=== PATIENT | female | born 1975 | race Caucasian/White ===

== ENCOUNTER → 2019-10-06 | Outpatient (CLI) | payer OTHER ==
[2019-10-06 08:25] LABS: ALANINE AMINOTRANSFERASE 21 U/L (12-78); ALBUMIN 3.4 g/dL (3.4-5.0); ANION GAP 4 mmol/L (5-15); CHLORIDE 106 mmol/L (98-107)
[2019-10-06 08:34] LABS: ALKALINE PHOSPHATASE 99 U/L (45-117); BILIRUBIN,TOTAL 0.8 mg/dL (0.2-1.0); CHOL/HDL RATIO 3.6; CHOLESTEROL, TOTAL 213 mg/dL (140-239); CREATININE 0.63 mg/dL (0.55-1.02); FREE T4 (FREE THYROXINE) 0.97 ng/dL (0.76-1.46); HDL CHOL % 28 % (28-40); HDL CHOLESTEROL (DIRECT) 60 mg/dL (40-60); LDL CHOLESTEROL,CALCULATED 129 mg/dL (54-169); LDL/HDL RATIO 2.2 (0.5-3.0); TOTAL PROTEIN 7.7 g/dL (6.4-8.2); TRIGLYCERIDES 119 mg/dL (50-200); VLDL CHOLESTEROL 24 mg/dL (0-25)
[2019-10-06 09:13] LABS: BASOPHILS # (AUTO) 0.05 x10^3/uL (0-0.1); BASOPHILS % (AUTO) 0 % (0-1); EOSINOPHILS % (AUTO) 3 % (1-7); LYMPHOCYTES # (AUTO) 2.43 x10^3/uL (1-3.4); LYMPHOCYTES % (AUTO) 21 % (22-44); MD NO; MEAN CORPUSCULAR HEMOGLOBIN 28.9 pg (27.0-34.8); MEAN CORPUSCULAR HGB CONC 33.4 g/dL (32.4-35.8); MEAN CORPUSCULAR VOLUME 86.4 fL (80-100); MEAN PLATELET VOLUME 9.6 fL (7.4-10.4); MONOCYTES # (AUTO) 0.18 x10^3/uL (0.2-0.8); MONOCYTES % (AUTO) 2 % (2-9); NEUTROPHILS # (AUTO) 8.48 x10^3/uL (1.8-6.8); NEUTROPHILS % (AUTO) 74 % (42-75); PLATELET COUNT 227 x10^3/uL (130-400); RED BLOOD COUNT 5.62 x10^6/uL (3.82-5.3); RED CELL DISTRIBUTION WIDTH 14.1 % (9.6-15.2)
== END | disposition home or self-care (01) ==
LOC: LAB 07:38
PROVIDERS: ATTEND Nurse Practitioner Family
DX: Z00.01 Encounter for general adult medical examination with abnormal findings (principal); Z13.220 Encounter for screening for lipoid disorders; E66.3 Overweight; F41.9 Anxiety disorder, unspecified; G47.00 Insomnia, unspecified; J45.909 Unspecified asthma, uncomplicated; Z86.19 Personal history of other infectious and parasitic diseases
CPT/HCPCS: 36415; 80053; 80061; 80074; 82306; 83036; 84439; 84443; 84481; 85025; 87521

== ENCOUNTER → 2020-01-03 | Outpatient (CLI) | payer OTHER ==
[~2020-01-03] MED LIST: OMNIPAQUE 350 MG/ML, 150 ML BOTTLE ONE
== END | disposition home or self-care (01) ==
LOC: EDSEX → CFH 14:06
PROVIDERS: ATTEND Nurse Practitioner Family
DX: N20.0 Calculus of kidney (principal); N28.89 Other specified disorders of kidney and ureter
CPT/HCPCS: 74178; Q9967

== ENCOUNTER → 2020-02-14 | Outpatient (CLI) | payer OTHER ==
[~2020-02-14] MED LIST changes: +ALBU8.5H8 INH; +ALPR0.5T3 PO; +CYCL5TAB PO; +DOCU-131 PO; +FEXO180T15 PO; +IBUP-1623 PO; +KETO10TA PO; +MECL-101 PO; -OMNIPAQUE 350 MG/ML, 150 ML BOTTLE ONE; +OXYC-302 PO; +PROP10TA16 PO
[2020-02-14 15:56] LABS: MICROSCOPIC INDICATED
== END | disposition home or self-care (01) ==
LOC: STAR 14:32
PROVIDERS: ATTEND Urology
DX: Z01.818 Encounter for other preprocedural examination (principal); Z20.828 Contact with and (suspected) exposure to other viral communicable diseases; N20.0 Calculus of kidney
CPT/HCPCS: 36415; 81001; 87086; 87635

== ENCOUNTER 2020-02-18 08:02 | Observation (INO) | payer OTHER ==
[~2020-02-18] VITALS: Ht 157.5 cm; Wt 125.2 kg
[~2020-02-18 08:02] MED LIST changes: -DOCU-131 PO; -OXYC-302 PO
[2020-02-18] MEDS ORDERED: VANCOMYCIN PMX 1GM/200ML 200 ML IV ONE (08:30)
[2020-02-18 08:42] VITALS: BP 128/84
[2020-02-18 08:43] VITALS: BP 128/84
[2020-02-18] MEDS ORDERED: CHLORHEXIDINE 15 ML UDC ONE (08:51)
[2020-02-18] MEDS: SODIUM CHLORIDE 0.9% 1,000 ML IV SCH ×2 (09:04→18:44)
[2020-02-18] MEDS ORDERED: LIDOCAINE 1%, 20ML ONE ×2 (10:19→10:56)
[2020-02-18] MEDS ORDERED: FENTANYL PF 100 MCG/2ML ONE ×2 (10:20→16:18)
[2020-02-18] MEDS ORDERED: MIDAZOLAM 1 MG/ML, 5ML ONE (10:20)
[2020-02-18] MEDS ORDERED: FLUMAZENIL 0.1 MG/1 ML, 5ML ONE (10:20)
[2020-02-18] MEDS ORDERED: NALOXONE 1 MG/ML, 2ML ONE (10:20)
[2020-02-18] MEDS ORDERED: ACETAMINOPHEN 500 MG TABLET PO ONE (12:00)
[2020-02-18] MEDS ORDERED: OXYcodone IR 5MG TABLET PO ONE (12:00)
[2020-02-18] MEDS ORDERED: LACTATED RINGERS 1,000 ML IV SCH (13:00)
[2020-02-18] MEDS ORDERED: CHLORHEXIDINE 15 ML UDC MM ONE (13:00)
[2020-02-18] MEDS ORDERED: FENTANYL PF 250 MCG/5ML ONE (14:28)
[2020-02-18] MEDS ORDERED: MIDAZOLAM 1 MG/ML, 2ML ONE (14:28)
[2020-02-18] MEDS ORDERED: OMNIPAQUE 350 MG/ML, 50 ML BOTTLE ONE (14:30)
[2020-02-18] MEDS ORDERED: CEFTRIAXONE 1,000 MG ONE ×2 (14:50→14:56)
[2020-02-18] MEDS ORDERED: ROCURONIUM 10MG/ML,5ML ONE (15:44)
[2020-02-18] MEDS ORDERED: NEOSTIGMINE 1 MG/ML, 10ML ONE (15:44)
[2020-02-18] MEDS ORDERED: ONDANSETRON 2MG/ML, 2ML ONE ×2 (15:44→16:17)
[2020-02-18] MEDS ORDERED: SUGAMMADEX 200 MG/2 ML IVPush ONE (15:44)
[2020-02-18] MEDS ORDERED: PROPOFOL 10 MG/ML, 20ML ONE (15:44)
[2020-02-18] MEDS ORDERED: CEFAZOLIN 1,000 MG ONE (15:44)
[2020-02-18] MEDS ORDERED: SUCCINYLCHOLINE 20 MG/ML, 10ML ONE (15:44)
[2020-02-18] MEDS ORDERED: GLYCOPYRROLATE 0.2MG/1ML, 5ML ONE (15:44)
[2020-02-18] MEDS ORDERED: DEXAMETHASONE 4 MG/ML, 1ML ONE (15:44)
[2020-02-18] MEDS ORDERED: HYDROmorphone 1 MG/ML, 1ML INJ IVPush PRN (16:00)
[2020-02-18] MEDS ORDERED: ONDANSETRON 2MG/ML, 2ML IVPush PRN (16:00)
[2020-02-18] MEDS ORDERED: OXYcodone 5 MG/5 ML ORAL.SOL UDC PO PRN (16:00)
[2020-02-18] MEDS ORDERED: PROMETHAZINE 25 MG/ML, 1ML IVPush PRN (16:00)
[2020-02-18] MEDS ORDERED: LORazepam 2 MG/ML, 1ML IVPush PRN (16:00)
[2020-02-18] MEDS ORDERED: PROMETHAZINE 25 MG SUPP PR PRN (16:00)
[2020-02-18] MEDS: FENTANYL PF 100 MCG/2ML IV PRN ×2 (16:20→16:50)
[2020-02-18] MEDS ORDERED: ONDANSETRON 2MG/ML, 2ML IV PRN (16:30)
[2020-02-18] MEDS ORDERED: OXYcodone 5 MG/5 ML ORAL.SOL UDC ONE (16:56)
[2020-02-18 17:40] VITALS: BP 123/81
[2020-02-18] MEDS: HYDROmorphone 2 MG/ML, 1ML IV PRN ×3 (17:59→23:06)
[2020-02-18] MEDS ORDERED: CYCLOBENZAPRINE 10 MG TABLET PO PRN (18:00)
[2020-02-18] MEDS ORDERED: ALBUTEROL HFA 90 MCG/SPRAY INH PRN (18:00)
[2020-02-18] MEDS ORDERED: MECLIZINE 25 MG TABLET PO PRN (18:00)
[2020-02-18 19:25] VITALS: BP 121/79
[2020-02-18] MEDS: OXYcodone/APAP 5/325MG TABLET PO PRN ×2 (20:03→23:51)
[2020-02-18 23:35] VITALS: BP 107/72
[2020-02-19 03:00] VITALS: BP 98/65
[2020-02-19] MEDS: OXYcodone/APAP 5/325MG TABLET PO PRN ×4 (03:54→15:57)
[2020-02-19 08:01] VITALS: BP 119/70
[2020-02-19] MEDS ORDERED: LORATADINE 10 MG TABLET PO SCH (09:00)
[2020-02-19] MEDS ORDERED: PROPRANOLOL 10 MG TABLET PO SCH (09:00)
[2020-02-19] MEDS ORDERED: KETOROLAC 30 MG/1 ML ONE (11:21)
[2020-02-19] MEDS ORDERED: KETOROLAC 30 MG/1 ML IVPush ONE (11:30)
[2020-02-19] MEDS ORDERED: OXYC-302 PO (11:57)
[2020-02-19] MEDS ORDERED: DOCU-131 PO (11:58)
[2020-02-19] MEDS ORDERED: KETOROLAC 30 MG/1 ML IM PRN (12:00)
[2020-02-19 13:00] VITALS: BP 105/78
[2020-02-19] MEDS ORDERED: ONDANSETRON ODT 4 MG ONE (15:43)
[2020-02-19] MEDS ORDERED: DIPHENHYDRAMINE 25 MG CAPSULE ONE (15:43)
[2020-02-19] MEDS ORDERED: ONDANSETRON ODT 4 MG PO ONE (16:00)
[2020-02-19] MEDS ORDERED: DIPHENHYDRAMINE 25 MG CAPSULE PO PRN (16:00)
== END 2020-02-19 16:40 | disposition home or self-care (01) ==
LOC: RAD 08:02 → ORIP 16:07 → 4NE 17:43 → DCLOUNGE 02-19 16:31
PROVIDERS: ADMIT Urology; ATTEND Urology
DX: N20.0 Calculus of kidney (principal); I10 Essential (primary) hypertension; Z88.0 Allergy status to penicillin; Z91.040 Latex allergy status; Z87.442 Personal history of urinary calculi
CPT/HCPCS: 50080; 50433; 74425; 82360; 88300; 96374; 96375; 96376; 99156; 99157; C1727; C1729; C1751; C1758; C1769; C2625; C2627; G0378; J0690; J0696; J1100; J1170; J1885; J2250; J2405; J2704; J3010; J3370; J3490; J7030; J7120; Q0163; Q9967; J2710; J0330; J2310